=== PATIENT | male | born 1995 | race Two or more races ===

== ENCOUNTER 2023-02-03 09:51 | Emergency (ER) | payer MEDICAID ==
[~2023-02-03] VITALS: Ht 172.7 cm; Wt 122.4 kg
[~2023-02-03 09:51] MED LIST: ASPITAB87
[2023-02-03 14:03] VITALS: BP 134/74; PULSE 95; RESP 18; TEMP 97.7; O2SAT 96
[2023-02-03] MEDS ORDERED: KETOROLAC TROMETH 60MG/2ML VIAL IM ONE (14:45)
[2023-02-03] MEDS ORDERED: IBUP1TAB5 PO (15:03)
[2023-02-03] MEDS ORDERED: CYCL-839 PO (15:03)
== END 2023-02-03 15:08 | disposition home or self-care (01) ==
LOC: ER 09:51
DX: S39.012A Strain of muscle, fascia and tendon of lower back, initial encounter (principal); Z79.1 Long term (current) use of non-steroidal anti-inflammatories (NSAID); Z79.899 Other long term (current) drug therapy; X58.XXXA Exposure to other specified factors, initial encounter; Y93.89 Activity, other specified; Y92.89 Other specified places as the place of occurrence of the external cause; Y99.8 Other external cause status
CPT/HCPCS: 72100; 96372; 99283; J1885